=== PATIENT | male | born 1980 | race Caucasian/White ===

== ENCOUNTER 2020-06-15 18:21 | Emergency (ER) | payer BC, SELFPAY ==
--- NOTE | 2020-06-15 19:47 | PC.NURSE ---
NO ANSWER WHEN CALLED FOR TRIAGE AT THIS TIME.
--- NOTE | 2020-06-15 20:00 | PC.NURSE ---
PT CALLED FOR TRIAGE FOR SECOND TIME; NO ANSWER.
== END 2020-06-15 20:00 | disposition left against medical advice (07) ==
LOC: ANHED 20:36
DX: Z53.21 Procedure and treatment not carried out due to patient leaving prior to being seen by health care provider (principal)
CPT/HCPCS: 99199